=== PATIENT | male | born 2000 | race African-American/Black ===

== ENCOUNTER 2020-04-06 15:00 | Emergency (ER) | payer OTHER ==
[~2020-04-06] VITALS: Ht 175.3 cm; Wt 68.0 kg
[2020-04-06 16:26] LABS: CLARITY URINE TURBID (CLEAR); COLOR URINE YELLOW (YELLOW); KETONES URINE TRACE (NEGATIVE); LEUKOCYTE ESTERASE URINE 3+ (NEGATIVE); NITRITE URINE NEGATIVE (NEGATIVE); OCCULT BLOOD URINE 3+ (NEGATIVE); PROTEIN URINE 3+ (NEGATIVE); SPECIFIC GRAVITY URINE 1.022 (1.005-1.030)
[2020-04-06] MEDS ORDERED: NITROFURANTOIN 100MG M/M CAPSULE PO ONE (17:30)
[2020-04-06] MEDS ORDERED: HYDROCODONE/ACETAMINOPHEN 5/325MG TABLET PO ONE (17:45)
[2020-04-06 18:00] VITALS: BP 134/87
== END 2020-04-06 18:40 | disposition home or self-care (01) ==
LOC: ER 15:00
DX: R33.9 Retention of urine, unspecified (principal); J45.909 Unspecified asthma, uncomplicated; Z88.0 Allergy status to penicillin; Z98.890 Other specified postprocedural states
CPT/HCPCS: 81003; 87186; 99283